=== PATIENT | female | born 1990 | race Caucasian/White ===

== ENCOUNTER 2021-10-17 00:31 | Inpatient (IN) | payer OTHER ==
[~2021-10-17] VITALS: Ht 167.6 cm; Wt 86.4 kg
[2021-10-17] VITALS (35 sets, daily range): BP systolic 96–141; BP diastolic 48–80; PULSE 63–120; TEMP 97.6–99
--- NOTE | 2021-10-17 00:35 | NUR ---
Ambulatory to unit for labor assessment, accompanied by spouse. Pt reports SROM @ 2100, occasional mild contractions. Oriented to room, monitor, plan of care. Questions invited and answered.
[2021-10-17] MEDS ORDERED: PRENATAL TABLET PO (01:09)
[2021-10-17 02:39] LABS: BASO # 0.1 K/mm3 (0.0-0.2); BASO % 0.6 % (0.0-2.0); EOS # 0.3 K/mm3 (0.0-0.7); GRAN # 9.9 K/mm3 (1.4-6.5); GRAN % 69.4 % (42.2-75.2); HEMOGLOBIN 12.4 g/dl (12.5-16.0); LYMPH # 2.5 K/mm3 (1.2-3.4); LYMPH % 17.2 % (20.0-51.0); MEAN CELL VOLUME 91 fl (80.0-100.0); MEAN CORPUSCULAR HEMOGLOBIN 32 pg (27.0-31.0); MEAN CORPUSCULAR HGB CONC 35 g/dl (33.0-37.0); MEAN PLATELET VOLUME 10.7 fl (7.4-10.4); MONO # 1.5 K/mm3 (0.1-0.6); MONO % 10.2 % (1.7-9.3); PLATELET COUNT 248 K/mm3 (130-400); RED BLOOD COUNT 3.89 M/mm3 (4.10-5.30)
[2021-10-17 02:41] LABS: HEMATOCRIT 35.3 % (37.0-47.0)
--- NOTE | 2021-10-17 03:30 | NUR ---
Pt deep breathing with contractions
--- NOTE | 2021-10-17 04:10 | NUR ---
Pt tense moaning and crying out with contractions.IV site to R wrist, swollen, tender to palpation. Site dc'd.
--- NOTE | 2021-10-17 04:20 | NUR ---
Pt requests epidural. Anesthesia notified.
--- NOTE | 2021-10-17 04:20 | NUR ---
Cheikh [employer] MILL WORKER into room. See anesthesia record. Pt to edge of bed.
--- NOTE | 2021-10-17 04:40 | NUR ---
Epidural placement done. to semi dang's. FHT's with late deceleration to 80's. TO L side, SVE 3-4/90%. Pitocin gtt off
--- NOTE | 2021-10-17 04:47 | NUR ---
Amandeep OPERATING ROOM ASSISTANT into room for epidural placement, see anesthesia record. Pt moved to Sit on edge of bed..EFM tracing FHR. [id number] To SF
--- NOTE | 2021-10-17 05:12 | NUR ---
FHT's w late deceleration to 100's returns to baseline. 0515 FHT's w late deceleration 90's. Pt to R lateral. Pitocin gtt off 0519 FHT's w late deceleration to 70's, back to baseline, onset to recovery 70 seconds.
--- NOTE | 2021-10-17 05:20 | NUR ---
FHT's with late deceleration to 70's, rapid recovery to baseline. Onset to recovery 80 seconds.
--- NOTE | 2021-10-17 05:43 | NUR ---
Dr Renteria into room, discusses need for C/Section, reviews plan of care. [id number] To C/S room.
[2021-10-18 02:00] VITALS: BP 109/56; PULSE 71; TEMP 98.1
[2021-10-18 06:49] LABS: HEMATOCRIT 28.4 % (37.0-47.0); HEMOGLOBIN 9.6 g/dl (12.5-16.0)
[2021-10-18 07:10] VITALS: BP 107/54; PULSE 80; TEMP 98.1
--- NOTE | 2021-10-18 09:21 | NUR ---
Initial visit; Parents thanked Technical Training Specialist for offering congratulations and God's blessings to their family for the of their son. Technical Training Specialist thanked family for choosing [facility].
[2021-10-18 16:30] VITALS: BP 100/56; PULSE 84; TEMP 97.8
[2021-10-18 19:30] VITALS: BP 107/64; PULSE 92; TEMP 98.1
[2021-10-19 08:45] VITALS: BP 111/64; PULSE 80; TEMP 97.7
[2021-10-19] MEDS ORDERED: IBU600 MG PO (09:40)
[2021-10-19] MEDS ORDERED: PERCOCET 325 MG1 TA2 PO (09:40)
--- NOTE | 2021-10-19 12:43 | NUR ---
DISCHARGE TEACHING COMPETED. EDUCATED ON FOLLOW UP APPOINTMENTS AND PRESCRIPTIONS. QUESTIONS INVITED AND ANSWERED.
== END 2021-10-19 12:50 | disposition home or self-care (01) | DRG 788 ==
LOC: LDRO 00:31 → OB 01:00 → LDR 01:00 → OB 09:06
PROVIDERS: ADMIT Obstetrics & Gynecology
PROC: 10D00Z1 Extraction of Products of Conception, Low, Open Approach (ICD-10-PCS; principal; 2021-10-17)
DX: O99.824 Streptococcus B carrier state complicating childbirth (principal); O76 Abnormality in fetal heart rate and rhythm complicating labor and delivery; O34.13 Maternal care for benign tumor of corpus uteri, third trimester; D25.2 Subserosal leiomyoma of uterus; Z3A.39 39 weeks gestation of pregnancy; Z37.0 Single live birth
CPT/HCPCS: J0171; J0690; J1100; J1885; J2405; J2540; J2590; J7120